=== PATIENT | male | born 1980 | race African-American/Black ===

== ENCOUNTER 2017-03-05 11:54 | Emergency (ER) | payer MEDICAID ==
[~2017-03-05] VITALS: Ht 175.3 cm; Wt 59.0 kg
[2017-03-05 12:05] VITALS: BP 134/95
== END 2017-03-05 15:49 | disposition home or self-care (01) ==
LOC: ER 12:00
DX: G44.209 Tension-type headache, unspecified, not intractable (principal)
CPT/HCPCS: 70450